=== PATIENT | female | born 1985 | race Caucasian/White ===

== ENCOUNTER → 2019-07-14 | Outpatient (CLI) | payer OTHER | END | disposition home or self-care (01) | LOC: RADPV 08:32 | PROVIDERS: ATTEND Internal Medicine | DX: R76.11 Nonspecific reaction to tuberculin skin test without active tuberculosis (principal) ==

== ENCOUNTER 2020-01-18 14:25 | Emergency (ER) | payer OTHER ==
[~2020-01-18] VITALS: Ht 165.1 cm; Wt 72.7 kg
[2020-01-18] MEDS ORDERED: LISI-661 PO (14:29)
[2020-01-18] MEDS ORDERED: METF-960 PO (14:29)
[2020-01-18 14:30] VITALS: BP 167/105
== END 2020-01-18 15:44 | disposition home or self-care (01) ==
LOC: EMS 14:27
DX: Z03.818 Encounter for observation for suspected exposure to other biological agents ruled out (principal); E11.65 Type 2 diabetes mellitus with hyperglycemia; I10 Essential (primary) hypertension; Z79.899 Other long term (current) drug therapy; Z79.84 Long term (current) use of oral hypoglycemic drugs
CPT/HCPCS: 82962; 99283; U0003

== ENCOUNTER → 2020-02-22 | Outpatient (CLI) | payer OTHER ==
[~2020-02-22] MED LIST: LISI-661 PO; METF-960 PO
== END | disposition home or self-care (01) ==
LOC: EMS 07:33
DX: Z20.828 Contact with and (suspected) exposure to other viral communicable diseases (principal)
CPT/HCPCS: U0003-CS

== ENCOUNTER 2020-05-29 12:16 | Emergency (ER) | payer OTHER ==
[~2020-05-29] VITALS: Ht 167.6 cm; Wt 77.3 kg
[2020-05-29] MEDS ORDERED: FLUORESCEIN SODIUM 1 MG STRIP OU ONE (15:30)
[2020-05-29] MEDS ORDERED: PROPARACAINE HCL 0.5% 15 ML OPHTHALMIC SOLUTION OD ONE (15:30)
[2020-05-29] MEDS ORDERED: ERYTHROMYCIN 0.5% 3.5 GM TUBE OPHTHALMIC OINTMENT OU ONE (15:45)
[2020-05-29 15:53] VITALS: BP 137/90
== END 2020-05-29 15:59 | disposition home or self-care (01) ==
LOC: EMS 12:21
DX: H57.89 Other specified disorders of eye and adnexa (principal); E11.9 Type 2 diabetes mellitus without complications; Z77.098 Contact with and (suspected) exposure to other hazardous, chiefly nonmedicinal, chemicals; Z79.84 Long term (current) use of oral hypoglycemic drugs